=== PATIENT | male | born 1975 | race Caucasian/White ===

== ENCOUNTER 2018-03-15 16:03 | Emergency (ER) | payer MEDICAID ==
[~2018-03-15] VITALS: Ht 177.8 cm; Wt 85.0 kg
[2018-03-15] MEDS ORDERED: cephalexin 250mg capsule PO ONE (17:30)
[2018-03-15] MEDS ORDERED: sulfamethoxazole/trimethoprim DS (800/160mg) tablet PO ONE (17:30)
[2018-03-15] MEDS ORDERED: ibuprofen tablet 400 MG TABLET PO ONE (17:30)
[2018-03-15] MEDS ORDERED: SULF1TAB49 PO (18:21)
[2018-03-15 18:27] VITALS: BP 115/85
== END 2018-03-15 18:28 | disposition home or self-care (01) ==
LOC: ER 16:03
DX: L03.114 Cellulitis of left upper limb (principal); B95.61 Methicillin susceptible Staphylococcus aureus infection as the cause of diseases classified elsewhere; B96.89 Other specified bacterial agents as the cause of diseases classified elsewhere; F15.90 Other stimulant use, unspecified, uncomplicated; Z79.899 Other long term (current) drug therapy
CPT/HCPCS: 99284

== ENCOUNTER → 2018-04-24 | Emergency (ER) | payer MEDICAID ==
[~2018-04-24] VITALS: Ht 177.8 cm; Wt 89.5 kg
[~2018-04-24] MED LIST: MUPI22OI30 TOP; mupirocin 2% nasal ointment 1gm UD NS STA; mupirocin 2% ointment 22GM TP STA
[2018-04-24 15:19] VITALS: BP 146/83
== END | disposition home or self-care (01) ==
LOC: ER 14:19
DX: L01.09 Other impetigo (principal); F15.90 Other stimulant use, unspecified, uncomplicated
CPT/HCPCS: 99283

== ENCOUNTER 2018-08-02 20:41 | Emergency (ER) | payer MEDICAID ==
[~2018-08-02] VITALS: Ht 177.8 cm; Wt 85.0 kg
[2018-08-02] MEDS ORDERED: LORazepam 1 MG tablet PO ONE (23:15)
[2018-08-03 00:10] VITALS: BP 121/63
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
== END 2018-08-03 00:12 | disposition home or self-care (01) ==
LOC: ER 20:41
DX: F41.9 Anxiety disorder, unspecified (principal); F15.90 Other stimulant use, unspecified, uncomplicated; Z59.0 Homelessness
CPT/HCPCS: 93005; 99284

== ENCOUNTER 2018-10-05 17:55 | Emergency (ER) | payer MEDICAID ==
[~2018-10-05] VITALS: Ht 177.8 cm; Wt 81.8 kg
[2018-10-05 18:18] VITALS: BP 139/80
[2018-10-05] MEDS ORDERED: LIDOcaine 5% patch TP STA (20:33)
[2018-10-05] MEDS ORDERED: ketorolac tromethamine 15mg/ml inj. IM ONE (20:35)
[2018-10-05] MEDS ORDERED: LIDO700A32 TOP (20:50)
== END 2018-10-05 21:03 | disposition home or self-care (01) ==
LOC: ER 17:55
DX: M25.512 Pain in left shoulder (principal); G89.29 Other chronic pain; F15.90 Other stimulant use, unspecified, uncomplicated; Z98.890 Other specified postprocedural states; Z60.2 Problems related to living alone; Z59.0 Homelessness; Z79.899 Other long term (current) drug therapy
CPT/HCPCS: 73030; 96372; 99283; J1885

== ENCOUNTER 2023-12-23 08:24 | Emergency (ER) | payer MEDICAID ==
[~2023-12-23] VITALS: Ht 172.7 cm; Wt 77.3 kg
[~2023-12-23 08:24] MED LIST changes: +HYDR-4383 PO; +LIDO700A32 TOP; -MUPI22OI30 TOP; -mupirocin 2% nasal ointment 1gm UD NS STA; -mupirocin 2% ointment 22GM TP STA
[2023-12-23] MEDS ORDERED: CEPH-585 PO (09:10)
[2023-12-23] MEDS ORDERED: SULF1TAB45 PO (09:10)
[2023-12-23 09:21] VITALS: BP 135/79; PULSE 104; RESP 16; TEMP 98.6; O2SAT 99
== END 2023-12-23 09:24 | disposition home or self-care (01) ==
LOC: ER 08:25
DX: L03.116 Cellulitis of left lower limb (principal); F15.90 Other stimulant use, unspecified, uncomplicated; F41.9 Anxiety disorder, unspecified; Z59.00 Homelessness unspecified; Z79.2 Long term (current) use of antibiotics; Z79.899 Other long term (current) drug therapy
CPT/HCPCS: 99283

== ENCOUNTER 2024-03-19 11:57 | Emergency (ER) | payer MEDICAID ==
[~2024-03-19] VITALS: Ht 175.3 cm; Wt 76.4 kg
[~2024-03-19 11:57] MED LIST changes: +CEPH-585 PO
[2024-03-19 11:58] VITALS: BP 133/81; PULSE 100; RESP 18; TEMP 98.4; O2SAT 99
[2024-03-19] MEDS ORDERED: SULF1TAB49 PO (12:26)
[2024-03-19] MEDS ORDERED: CEPH-585 PO (12:26)
[2024-03-19] MEDS: CefTRIAXone 1000mg IM Kit (w/lidocaine diluent) IM ONE (12:32)
== END 2024-03-19 12:30 | disposition home or self-care (01) ==
LOC: ER 11:57
DX: L03.113 Cellulitis of right upper limb (principal); F41.9 Anxiety disorder, unspecified; F15.90 Other stimulant use, unspecified, uncomplicated; Z59.00 Homelessness unspecified; Z60.2 Problems related to living alone; Z98.890 Other specified postprocedural states; Z79.899 Other long term (current) drug therapy
CPT/HCPCS: 96372; 99283; J0696

== ENCOUNTER 2024-07-25 17:55 | Emergency (ER) | payer MEDICAID ==
[~2024-07-25] VITALS: Ht 175.3 cm; Wt 79.5 kg
[2024-07-25 18:03] VITALS: TEMP 98
[2024-07-25 18:54] LABS: BASOPHILS % (AUTO) 0.1 % (0-1); EOSINOPHILS # (AUTO) 0.2 X10'3 (0-0.9); EOSINOPHILS % (AUTO) 0.8 % (0-6); HEMATOCRIT 46.5 % (42.0-52.0); HEMOGLOBIN 15.8 g/dl (14.0-17.9); LYMPHOCYTES # (AUTO) 2.9 X10'3 (1.1-4.8); MEAN CORPUSCULAR HEMOGLOBIN 29.3 PG (27.0-31.0); MEAN CORPUSCULAR VOLUME 86.3 FL (78-98); MEAN PLATELET VOLUME 7.5 FL (7.4-10.4); MONOCYTES # (AUTO) 1.7 X10'3 (0-0.9); MONOCYTES % (AUTO) 8.6 % (2-12); NEUTROPHILS # (AUTO) 14.7 X10'3 (1.8-7.7); NEUTROPHILS % (AUTO) 75.5 % (42-75); PLATELET COUNT 330 X10'3 (140-440); RED BLOOD COUNT 5.39 X10'6 (4.70-6.10); RED CELL DISTRIBUTION WIDTH 13.7 % (11.5-14.5); WHITE BLOOD COUNT 19.6 X10'3 (4.5-11.0)
[2024-07-25 18:59] LABS: ALANINE AMINOTRANSFERASE 23 U/L (12-78); ALBUMIN 3.4 G/DL (3.4-5.0); ALBUMIN/GLOBULIN RATIO 0.7 (1.1-1.5); ALKALINE PHOSPHATASE 30 IU/L (46-116); ANION GAP 8 (8-16); ASPARTATE AMINO TRANSFERASE 8 U/L (10-37); BILIRUBIN,TOTAL 1.6 MG/DL (0.1-1.0); BLOOD UREA NITROGEN 13 MG/DL (7-18); BUN/CREATININE RATIO 12.5 (10.0-20.0); CALCIUM 8.8 MG/DL (8.5-10.1); CHLORIDE 100 MMOL/L (99-107); CREATININE 1.04 MG/DL (0.60-1.10); GLUCOSE 107 MG/DL (70-104); SODIUM 137 MMOL/L (135-145); TOTAL CARBON DIOXIDE 29.5 MMOL/L (24-32); TOTAL PROTEIN 8.1 G/DL (6.4-8.2); eCRCL 89 ML/MIN; eGFR 77 ML/MIN
[2024-07-25 19:11] LABS: PRO BRAIN NATRIURETIC PEPTIDE < 30 PG/ML (0-125)
[2024-07-25] MEDS ORDERED: IBUP-862 PO (19:40)
[2024-07-25] MEDS ORDERED: AZIT250T83 PO (19:40)
[2024-07-25] MEDS: CefTRIAXone 1000mg IM Kit (w/lidocaine diluent) IM ONE (20:00)
[2024-07-25] MEDS: azithromycin 250mg tablet PO ONE (20:01)
[2024-07-25 20:12] VITALS: BP 116/62; PULSE 92; RESP 16; O2SAT 97
== END 2024-07-25 20:15 | disposition home or self-care (01) ==
LOC: ER 17:56
DX: J18.9 Pneumonia, unspecified organism (principal); Z88.1 Allergy status to other antibiotic agents; Z88.5 Allergy status to narcotic agent
CPT/HCPCS: 36415; 71045; 80053; 83880; 84484; 85025; 93005; 96372; 99285; J0696

== ENCOUNTER 2024-10-04 04:35 | Emergency (ER) | payer MEDICAID ==
[~2024-10-04] VITALS: Ht 175.3 cm; Wt 75.6 kg
[~2024-10-04 04:35] MED LIST changes: +IBUP-862 PO; +LIDO-52 TOP; -LIDO700A32 TOP
--- NOTE | 2024-10-04 05:08 | RADIOLOGY REPORT ---
PROCEDURE: Right knee radiographs. INDICATION: KNEE PAIN TECHNIQUE: 3 views of the right knee were obtained. COMPARISON: None FINDINGS: There is no evidence of fracture or dislocation. Joint spaces are maintained. There is min eralization superior to the patella.le Suprapatellar joint effusion. IMPRESSION: 1. No fracture or dislocation. 2. Joint effusion and soft tissue swelling. Mineralization superior to the upper pole of the patella . Soft tissue injuries not excluded. MRI of the knee without contrast is recommended for further ev aluation to exclude soft tissue and possible avulsion injury.
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
[2024-10-04] MEDS: ketorolac trometh 15mg/ml vial 15 MG/ML ML IM ONE (07:27)
[2024-10-04 07:39] VITALS: BP 122/78; PULSE 88; RESP 16; TEMP 97.4; O2SAT 97
== END 2024-10-04 07:35 | disposition home or self-care (01) ==
LOC: ER 04:36
DX: M25.461 Effusion, right knee (principal); F15.90 Other stimulant use, unspecified, uncomplicated
CPT/HCPCS: 73564; 96372; 99283; J1885